=== PATIENT | male | born 1980 | race Caucasian/White ===

== ENCOUNTER 2017-09-23 21:55 | Emergency (ER) | payer OTHER, BC ==
[~2017-09-23] VITALS: Ht 185.4 cm; Wt 110.0 kg
[~2017-09-23 21:55] MED LIST: DARV PO; PRAZ2 PO
[2017-09-23 21:57] VITALS: BP 187/104; PULSE 92; RESP 25; TEMP 97.6; O2SAT 98
[2017-09-23] MEDS ORDERED: MORPHINE SULFATE 4 MG/ML INJ IV PUSH ONE ×2 (22:30→23:00)
[2017-09-23 22:31] LABS: AUTOMATED NEUTROPHIL # 7.3 TH/MM3 (1.8-7.7); BASOPHIL # 0.1 TH/MM3 (0-0.2); BASOPHIL % 1.1 % (0.0-2.0); EOSINOPHIL # 0.1 TH/MM3 (0-0.4); HEMATOCRIT 53.1 % (39.0-51.0); HEMOGLOBIN 17.9 GM/DL (13.0-17.0); LYMPH % 23.9 % (9.0-44.0); LYMPHOCYTE # 2.6 TH/MM3 (1.0-4.8); MEAN CELL VOLUME 86.2 FL (80.0-100.0); MEAN CORPUSCULAR HEMOGLOBIN 29.1 PG (27.0-34.0); MEAN CORPUSCULAR HGB CONC 33.7 % (32.0-36.0); MEAN PLATELET VOLUME 7.2 FL (7.0-11.0); MONO % 7.6 % (0.0-8.0); MONOCYTE # 0.8 TH/MM3 (0-0.9); NEUT % 66.4 % (16.0-70.0); PLATELET COUNT 418 TH/MM3 (150-450); RED BLOOD COUNT 6.16 MIL/MM3 (4.50-5.90); RED CELL DISTRIBUTION WIDTH 12.4 % (11.6-17.2); WHITE BLOOD COUNT 10.9 TH/MM3 (4.0-11.0)
[2017-09-23 22:35] LABS: CHLORIDE 105 MEQ/L (98-107); SODIUM (NA) 137 MEQ/L (136-145)
[2017-09-23 22:38] LABS: CALCIUM 9.3 MG/DL (8.5-10.1)
[2017-09-23 22:39] LABS: ALBUMIN 4.5 GM/DL (3.4-5.0); BICARBONATE 22.8 MEQ/L (21.0-32.0); BLOOD UREA NITROGEN 14 MG/DL (7-18); GLUCOSE,RANDOM 130 MG/DL (74-106)
[2017-09-23 22:42] LABS: ALT (GPT) 80 U/L (12-78); AST (GOT) 35 U/L (15-37); GLOMERULAR FILTRATION RATE 75 ML/MIN (>89)
[2017-09-23 22:44] LABS: TOTAL BILIRUBIN ADULT 0.4 MG/DL (0.2-1.0); TOTAL PROTEIN 8.3 GM/DL (6.4-8.2)
[2017-09-23 22:45] LABS: ALKALINE PHOSPHATASE 100 U/L (45-117)
[2017-09-23] MEDS ORDERED: KETOROLAC TROMETHAMINE 30 MG/ML (IVP) VIAL IV PUSH ONE (23:00)
[2017-09-23] MEDS ORDERED: SILVER SULFADIAZINE 1% CR 400 GM JAR TOPICAL ONE (23:15)
--- NOTE | 2017-09-23 23:29 | PD ---
HPI Chief Complaint: Burn Time Seen by Provider: 22:09 Travel History International Travel<30 days: No Contact w/Intl Traveler<30days: No Traveled to known affect area: No History of Present Illness HPI Patient is a 37-year-old male who comes in complaining of a burn to his left lower abdomen as well as his left upper thigh. He says he spilled some hot tea on himself this evening. Someone put zinc on it for him prior to coming in, he also said he tried jumping in the pool for relief. None of these things helped. He denies any medical problems. He denies any other injuries. He says the pain is severe. PFSH Past Medical History Depression: Yes Diminished Hearing: No Tetanus Vaccination: Unknown Past Surgical History Surgical History: No Previous Surgery Social History Alcohol Use: Yes (RARELY) Tobacco Use: No Substance Use: No Allergies-Medications (Allergen,Severity, Reaction): Coded Allergies: penicillin G (Unverified Allergy, Mild, 09/23/17) Reported Meds & Prescriptions Reported Meds & Active Scripts Active Review of Systems Except as stated in HPI: all other systems reviewed are Neg General / Constitutional: No: Fever, Chills HENT: No: Headaches, Lightheadedness Cardiovascular: No: Chest Pain or Discomfort Respiratory: No: Shortness of Breath Gastrointestinal: No: Nausea, Vomiting Musculoskeletal: No: Myalgias Skin: Positive Lesions Neurologic: No: Weakness, Dizziness Physical Exam Narrative GENERAL: Awake and alert, in no acute distress. SKIN: 2nd degree burn with blisters to the LLQ, covering about 1-2% of BSA. 2nd degree burn with blistering to the left upper thigh, only anteriorly, approximately 2-3% of his BSA. HEAD: Atraumatic. Normocephalic. EYES: Pupils equal and round. No scleral icterus. ENT: Mucous membranes pink and moist. CARDIOVASCULAR: Regular rate and rhythm. No murmur appreciated. RESPIRATORY: No accessory muscle use. Clear to auscultation. Breath sounds equal bilaterally. MUSCULOSKELETAL: No obvious deformities. No clubbing. No cyanosis. No edema. NEUROLOGICAL: Awake and alert. No obvious cranial nerve deficits. Motor grossly within normal limits. Normal speech. PSYCHIATRIC: Appropriate mood and affect; insight and judgment normal. Data Data Last Documented VS Vital Signs Date Time Temp Pulse Resp B/P (MAP) Pulse Ox O2 Delivery O2 Flow Rate FiO2 09/23/17 23:25 16 09/23/17 21:57 97.6 92 187/104 (131) 98 Orders Orders Iv Access Insert/Monitor (09/23/17 22:16) Complete Blood Count With Diff (09/23/17 22:16) Comprehensive Metabolic Panel (09/23/17 22:16) Morphine Inj (Morphine Inj) (09/23/17 22:30) Ketorolac Inj (Toradol Inj) (09/23/17 23:00) Morphine Inj (Morphine Inj) (09/23/17 23:00) Silver Sulfadi 1% Crm (400 Gm) (Silvaden (09/23/17 23:15) Labs Laboratory Tests Test 09/23/17 22:21 White Blood Count 10.9 TH/MM3 Red Blood Count 6.16 MIL/MM3 Hemoglobin 17.9 GM/DL Hematocrit 53.1 % Mean Corpuscular Volume 86.2 FL Mean Corpuscular Hemoglobin 29.1 PG Mean Corpuscular Hemoglobin Concent 33.7 % Red Cell Distribution Width 12.4 % Platelet Count 418 TH/MM3 Mean Platelet Volume 7.2 FL Neutrophils (%) (Auto) 66.4 % Lymphocytes (%) (Auto) 23.9 % Monocytes (%) (Auto) 7.6 % Eosinophils (%) (Auto) 1.0 % Basophils (%) (Auto) 1.1 % Neutrophils # (Auto) 7.3 TH/MM3 Lymphocytes # (Auto) 2.6 TH/MM3 Monocytes # (Auto) 0.8 TH/MM3 Eosinophils # (Auto) 0.1 TH/MM3 Basophils # (Auto) 0.1 TH/MM3 CBC Comment DIFF FINAL Differential Comment Blood Urea Nitrogen 14 MG/DL Creatinine 1.10 MG/DL Random Glucose 130 MG/DL Total Protein 8.3 GM/DL Albumin 4.5 GM/DL Calcium Level 9.3 MG/DL Alkaline Phosphatase 100 U/L Aspartate Amino Transf (AST/SGOT) 35 U/L Alanine Aminotransferase (ALT/SGPT) 80 U/L Total Bilirubin 0.4 MG/DL Sodium Level 137 MEQ/L Potassium Level 3.8 MEQ/L Chloride Level 105 MEQ/L Carbon Dioxide Level 22.8 MEQ/L Anion Gap 9 MEQ/L Estimat Glomerular Filtration Rate 75 ML/MIN [facility] Medical Decision Making Medical Screen Exam Complete: Yes Emergency Medical Condition: Yes Medical Record Reviewed: Yes Differential Diagnosis Burn versus cellulitis versus injury Narrative Course Patient is a 37 male comes in after he spilled hot tea on himself. Exam shows second-degree ortega to his left lower abdomen as well as his left upper thigh. There are no blisters or redness to his left testicle. Ortega were cleaned, dressed with Silvadene and bandaged. He was given pain medicine. He will be discharged with the remainder of the Silvadene and pain medicine. He is advised to change his bandages daily and reapply the Silvadene. Advised to return anytime for any signs of infection or any worsening symptoms. Asked to return in 2 days for a wound check. Diagnosis Primary Impression: 2nd deg burn abdomn wall Additional Impression: 2nd deg burn leg Patient Instructions: General Instructions, Second Degree Burn (ED) Additional Instructions: Drink plenty of fluids. Keep the area clean and dry, apply the Silvadene 3 times a day for the next few days. Return anytime for any worsening symptoms, especially for any signs of infection. Return in 2 days for a wound check. Scripts Oxycodone-Acetaminophen (Percocet) 5-325 mg Tab 1 TAB PO Q6H Y for PAIN, #14 TAB 0 Refills Prov: Shana Deleon MD 09/24/17 Disposition: 01 DISCHARGE HOME Condition: Stable Shana Deleon MD Sep 23, 2017 23:29
[2017-09-24] MEDS ORDERED: PERC5TAB12 PO (00:07)
[2017-09-24] MEDS ORDERED: oxyCODONE/ACETAMINOPHEN 5 MG/325 MG TAB PO ONE (00:15)
[2017-09-24 00:27] VITALS: BP 145/92; PULSE 79; RESP 16; TEMP 97.9; O2SAT 98
== END 2017-09-24 00:53 | disposition home or self-care (01) ==
LOC: PHED 21:55
DX: T21.22XA Burn of second degree of abdominal wall, initial encounter (principal); T24.212A Burn of second degree of left thigh, initial encounter; X10.0XXA Contact with hot drinks, initial encounter
CPT/HCPCS: 16020; 80053; 85025; 96374; 96376; 99284; J1885; J2270

== ENCOUNTER 2017-12-17 19:39 | Emergency (ER) | payer OTHER, BC ==
[~2017-12-17 19:39] MED LIST changes: -DARV PO; +PERC5TAB12 PO; -PRAZ2 PO
[2017-12-17 19:41] VITALS: BP 140/93; PULSE 66; RESP 16; O2SAT 98
[2017-12-17 20:32] VITALS: BP 166/96; PULSE 66; RESP 18; O2SAT 98
[2017-12-17] MEDS ORDERED: KETOROLAC TROMETHAMINE 30 MG/ML (IVP) VIAL IV PUSH ONE (20:45)
[2017-12-17] MEDS ORDERED: SODIUM CHLOR 0.9% 1000 ML INJ 1,000 ML IV ONE ×2 (20:45→21:45)
[2017-12-17 20:57] LABS: AUTOMATED NEUTROPHIL # 11.6 TH/MM3 (1.8-7.7); BASOPHIL # 0.1 TH/MM3 (0-0.2); BASOPHIL % 0.5 % (0.0-2.0); EOSINOPHIL # 0.1 TH/MM3 (0-0.4); EOSINOPHIL % 0.8 % (0.0-4.0); HEMATOCRIT 49.5 % (39.0-51.0); HEMOGLOBIN 17.3 GM/DL (13.0-17.0); LYMPH % 17.2 % (9.0-44.0); LYMPHOCYTE # 2.7 TH/MM3 (1.0-4.8); MEAN CELL VOLUME 85.2 FL (80.0-100.0); MEAN CORPUSCULAR HEMOGLOBIN 29.8 PG (27.0-34.0); MEAN PLATELET VOLUME 7.7 FL (7.0-11.0); MONOCYTE # 1.1 TH/MM3 (0-0.9); NEUT % 74.5 % (16.0-70.0); PLATELET COUNT 336 TH/MM3 (150-450); RED BLOOD COUNT 5.81 MIL/MM3 (4.50-5.90); RED CELL DISTRIBUTION WIDTH 12.9 % (11.6-17.2); WHITE BLOOD COUNT 15.6 TH/MM3 (4.0-11.0)
[2017-12-17 21:04] LABS: CHLORIDE 100 MEQ/L (98-107); SODIUM (NA) 134 MEQ/L (136-145)
[2017-12-17 21:07] LABS: CALCIUM 9.2 MG/DL (8.5-10.1)
[2017-12-17 21:08] LABS: ALBUMIN 4.2 GM/DL (3.4-5.0); BICARBONATE 24.9 MEQ/L (21.0-32.0); BLOOD UREA NITROGEN 17 MG/DL (7-18); GLUCOSE,RANDOM 106 MG/DL (74-106)
[2017-12-17 21:11] LABS: ALT (GPT) 72 U/L (12-78); AST (GOT) 33 U/L (15-37); GLOMERULAR FILTRATION RATE 75 ML/MIN (>89)
[2017-12-17 21:12] LABS: TOTAL BILIRUBIN ADULT 0.6 MG/DL (0.2-1.0)
[2017-12-17 21:14] LABS: ALKALINE PHOSPHATASE 87 U/L (45-117)
[2017-12-17] MEDS ORDERED: MORPHINE SULFATE 2 MG/ML SYRINGE IV PUSH ONE (21:15)
--- NOTE | 2017-12-17 21:17 | RADRPT ---
EXAM DATE/TIME: 12/17/2017 20:55 [facility] COMPARISON: No previous studies available for comparison. INDICATIONS : Right flank pain. ORAL CONTRAST: No oral contrast ingested. RADIATION DOSE: 19.15 CTDIvol (mGy) MEDICAL HISTORY : Renal calculi. SURGICAL HISTORY : None. ENCOUNTER: Initial ACUITY: 1 day PAIN SCALE: 10/10 LOCATION: Right flank TECHNIQUE: Volumetric scanning of the abdomen and pelvis was performed. Using automated exposure control and ad justment of the mA and/or kV according to patient size, radiation dose was kept as low as reasonably achievable to obtain optimal diagnostic quality images. DICOM format image data is available electro nically for review and comparison. FINDINGS: LOWER LUNGS: The visualized lower lungs are clear. LIVER: Homogeneous density without lesion. There is no dilation of the biliary tree. No calcified gallston es. SPLEEN: Normal size without lesion. PANCREAS: Within normal limits. KIDNEYS: Normal in size and shape. There is a 6 mm stone at the right UPJ. This generates mild to moderate hyd ronephrosis. No stones involving the left kidney or left ureter. ADRENAL GLANDS: Within normal limits. VASCULAR: There is no aortic aneurysm. BOWEL/MESENTERY: The stomach, small bowel, and colon demonstrate no acute abnormality. There is no free intraperitone al air or fluid. ABDOMINAL WALL: Within normal limits. RETROPERITONEUM: There is no lymphadenopathy. BLADDER: No wall thickening or mass. REPRODUCTIVE: Within normal limits. INGUINAL: There is no lymphadenopathy or hernia. MUSCULOSKELETAL: Within normal limits for patient age. CONCLUSION: 1. 6 mm right UPJ stone with mild to moderate hydronephrosis. No perinephric fluid collections. Clint Grewal Jr., MD on December 17, 2017 at 21:11 Board Certified Radiologist. This report was verified electronically.
[2017-12-17 21:30] VITALS: BP 145/83; PULSE 67; RESP 18; O2SAT 97
[2017-12-17] MEDS ORDERED: MORPHINE SULFATE 4 MG/ML INJ IV PUSH ONE (21:45)
[2017-12-17] MEDS ORDERED: MORPHINE SULFATE 8 MG/ML INJ IV PUSH ONE (21:45)
[2017-12-17] MEDS ORDERED: ONDANSETRON HCL 4 MG/2 ML VIAL IV PUSH ONE (21:45)
[2017-12-17 22:30] VITALS: BP 143/75; PULSE 62; RESP 18; O2SAT 96
--- NOTE | 2017-12-17 22:36 | PD ---
HPI . flank pain Chief Complaint: Flank/Kidney Pain Time Seen by Provider: 20:33 Travel History International Travel<30 days: No Contact w/Intl Traveler<30days: No Traveled to known affect area: No History of Present Illness HPI Patient is a 37-year-old male with sudden onset of right sided flank pain radiating around to his side. He says he did have blood in his urine which he was able to see and now is having difficulty urinating. He has a distant history of kidney stones which were not needing any intervention in the past on their own. He otherwise is a healthy male with no significant past medical history pain is localized deep inside on the lateral right aspect of his abdomen it is not reproducible with my percussion or palpation of his abdomen or his flank. It makes him nauseous when the pain gets severe he would rated 10 out of 10 when it is at its worst associated with nausea and feeling diaphoretic. There is no radiation to the groin and there is no flank pain it is mostly the lateral right aspect of his back he took 2 Tylenol prior to leaving his house which did not help the pain the pain is like pressure burning PFSH Past Medical History Depression: Yes Diminished Hearing: No Kidney Stones: Yes Influenza Vaccination: No Social History Alcohol Use: Yes (RARELY) Tobacco Use: No Substance Use: No Allergies-Medications (Allergen,Severity, Reaction): Coded Allergies: penicillin G (Verified Allergy, Mild, 12/17/17) Reported Meds & Prescriptions Reported Meds & Active Scripts Active Zofran (Ondansetron HCl) 4 Mg Tab 4 Mg PO Q6HR PRN Flomax (Tamsulosin HCl) 0.4 Mg Cap 0.4 Mg PO HS Ibuprofen 600 Mg Tab 600 Mg PO Q6H PRN Percocet (Oxycodone-Acetaminophen) 5-325 mg Tab 1 Tab PO Q6H PRN Review of Systems Except as stated in HPI: all other systems reviewed are Neg Gastrointestinal: Positive: Abdominal Pain Genitourinary: Positive: Flank Pain Physical Exam Narrative GENERAL: Patient is sitting on his bed leaning forward as if trying to find a comfortable position SKIN: Warm and dry. HEAD: Atraumatic. Normocephalic. EYES: Pupils equal and round. No scleral icterus. No injection or drainage. ENT: No nasal bleeding or discharge. Mucous membranes pink and moist. NECK: Trachea midline. No JVD. CARDIOVASCULAR: Regular rate and rhythm. RESPIRATORY: No accessory muscle use. Clear to auscultation. Breath sounds equal bilaterally. GASTROINTESTINAL: Abdomen soft, non-tender, nondistended. Hepatic and splenic margins not palpable. MUSCULOSKELETAL: Extremities without clubbing, cyanosis, or edema. No obvious deformities. Back exam-- percussion of the CVA does not elicit the pain however percussing his lateral lower rib area he says does stimulate the pain NEUROLOGICAL: Awake and alert. No obvious cranial nerve deficits. Motor grossly within normal limits. Five out of 5 muscle strength in the arms and legs. Normal speech. PSYCHIATRIC: Appropriate mood and affect; insight and judgment normal. Data Data Last Documented VS Vital Signs Date Time Temp Pulse Resp B/P (MAP) Pulse Ox O2 Delivery O2 Flow Rate FiO2 12/18/17 01:18 65 18 158/95 (116) 97 12/17/17 23:30 Room Air Orders Orders Complete Blood Count With Diff (12/17/17 20:39) Comprehensive Metabolic Panel (12/17/17 20:39) Lipase (12/17/17 20:39) Urinalysis - C+S If Indicated (12/17/17 20:39) Ct Abd/Pel W/O Iv Contrast (12/17/17 ) Ketorolac Inj (Toradol Inj) (12/17/17 20:45) Sodium Chlor 0.9% 1000 Ml Inj (Ns 1000 M (12/17/17 20:45) Morphine Inj (Morphine Inj) (12/17/17 21:45) Morphine Inj (Morphine Inj) (12/17/17 21:45) Sodium Chlor 0.9% 1000 Ml Inj (Ns 1000 M (12/17/17 21:45) Ondansetron Inj (Zofran Inj) (12/17/17 21:45) Ondansetron Odt (Zofran Odt) (12/17/17 22:45) Sodium Chlor 0.9% 1000 Ml Inj (Ns 1000 M (12/18/17 00:00) Oxycodone-Acetamin 5-325 Mg (Percocet (12/18/17 00:45) Ed Discharge Order (12/18/17 00:44) Labs Laboratory Tests Test 12/17/17 20:35 12/17/17 23:45 White Blood Count 15.6 TH/MM3 Red Blood Count 5.81 MIL/MM3 Hemoglobin 17.3 GM/DL Hematocrit 49.5 % Mean Corpuscular Volume 85.2 FL Mean Corpuscular Hemoglobin 29.8 PG Mean Corpuscular Hemoglobin Concent 35.0 % Red Cell Distribution Width 12.9 % Platelet Count 336 TH/MM3 Mean Platelet Volume 7.7 FL Neutrophils (%) (Auto) 74.5 % Lymphocytes (%) (Auto) 17.2 % Monocytes (%) (Auto) 7.0 % Eosinophils (%) (Auto) 0.8 % Basophils (%) (Auto) 0.5 % Neutrophils # (Auto) 11.6 TH/MM3 Lymphocytes # (Auto) 2.7 TH/MM3 Monocytes # (Auto) 1.1 TH/MM3 Eosinophils # (Auto) 0.1 TH/MM3 Basophils # (Auto) 0.1 TH/MM3 CBC Comment DIFF FINAL Differential Comment Blood Urea Nitrogen 17 MG/DL Creatinine 1.10 MG/DL Random Glucose 106 MG/DL Total Protein 8.0 GM/DL Albumin 4.2 GM/DL Calcium Level 9.2 MG/DL Alkaline Phosphatase 87 U/L Aspartate Amino Transf (AST/SGOT) 33 U/L Alanine Aminotransferase (ALT/SGPT) 72 U/L Total Bilirubin 0.6 MG/DL Sodium Level 134 MEQ/L Potassium Level 3.6 MEQ/L Chloride Level 100 MEQ/L Carbon Dioxide Level 24.9 MEQ/L Anion Gap 9 MEQ/L Estimat Glomerular Filtration Rate 75 ML/MIN Lipase 140 U/L Urine Color YELLOW Urine Turbidity SL CLOUDY Urine pH 6.0 Urine Specific [place] 1.015 Urine Protein NEG mg/dL Urine Glucose (UA) NEG mg/dL Urine Ketones 15 mg/dL Urine Occult Blood LARGE Urine Nitrite NEG Urine Bilirubin NEG Urine Urobilinogen 0.2 MG/DL Urine Leukocyte Esterase NEG Urine RBC 100-200 /hpf Urine WBC 0-2 /hpf Urine Squamous Epithelial Cells 0-5 /hpf Urine Bacteria FEW /hpf Urine Mucus FEW /lpf Microscopic Urinalysis Comment CULT NOT INDICATED MDM Medical Decision Making Medical Screen Exam Complete: Yes Emergency Medical Condition: Yes Differential Diagnosis Differential diagnosis includes costochondritis versus muscle strain versus flank pain versus renal colic versus obstructive renal stone ureter stone bladder stone. Muscle spasm appendicitis gallbladder disease other Narrative Course CT shows a mid ureter 6 mm stone with mild hydronephrosis and hydroureter proximal to the stone right-sided this correlates with the patient's pain he is given 2 L of fluid and Toradol 30 IV which helps reduce the pain from a 10 to a 3 and then for morphine and another liter fluid he will be discharged with Flomax and antibiotics and pain pills and a strainer to follow-up with an outpatient Dr Jaramillo urologist Diagnosis Primary Impression: Kidney stone Referrals: Ace Jaramillo DO Patient Instructions: General Instructions, Kidney Stones (DC) Additional Instructions: take Flomax before bedtime each night, Take ibuprofen 600mg PO every 6 hrs for pain and percocet for pain not controlled by ibuprofen . Urinate into the strainer until you see the stone. Call Dr Jaramillo for follow up urology Return to Er for any complications Scripts Ondansetron (Zofran) 4 Mg Tab 4 MG PO Q6HR Y for NAUSEA OR VOMITING, #10 TAB 0 Refills Prov: Fermin Escudero MD 12/18/17 Tamsulosin (Flomax) 0.4 Mg Cap 0.4 MG PO HS for Manage Prostate Problems, #10 CAP 0 Refills Prov: Fermin Escudero MD 12/18/17 Ibuprofen (Ibuprofen) 600 Mg Tab 600 MG PO Q6H Y for Pain/Inflammation, #40 TAB 0 Refills Prov: Fermin Escudero MD 12/18/17 Oxycodone-Acetaminophen (Percocet) 5-325 mg Tab 1 TAB PO Q6H Y for PAIN, #15 TAB 0 Refills Prov: Fermin Escudero MD 12/18/17 Disposition: 01 DISCHARGE HOME Condition: Good Fermin Escudero MD December 17, 2017 22:36
[2017-12-17] MEDS ORDERED: ONDANSETRON ODT 4 MG TAB PO ONE (22:45)
[2017-12-17 23:30] VITALS: BP 160/90; PULSE 66; RESP 16; O2SAT 97
[2017-12-17 23:51] LABS: BILIRUBIN, URINE NEG (NEG); BLOOD, URINE LARGE (NEG); GLUCOSE,URINE NEG (NEG); KETONE, URINE 15 mg/dL (NEG); NITRITE,URINE NEG (NEG); URINE COLOR YELLOW (YELLW/STRAW); URINE LEUKOCYTE ESTERASE NEG (NEG)
[2017-12-17 23:59] LABS: MUCUS URINE FEW /lpf (OCC); RBC, URINE 100-200 /hpf (0-3); SQUAMOUS EPITHELIAL CELL URINE 0-5 /hpf (0-5); WBC, URINE 0-2 /hpf (0-5)
[2017-12-18] LABS: BACTERIA, URINE FEW /hpf
[2017-12-18] MEDS ORDERED: SODIUM CHLOR 0.9% 1000 ML INJ 1,000 ML IV ONE
[2017-12-18] MEDS ORDERED: TAMS5CAP PO (00:41)
[2017-12-18] MEDS ORDERED: PERC5TAB12 PO (00:41)
[2017-12-18] MEDS ORDERED: IBUP-232 PO (00:41)
[2017-12-18] MEDS ORDERED: ZOFR4TAB PO (00:41)
[2017-12-18] MEDS ORDERED: oxyCODONE/ACETAMINOPHEN 5 MG/325 MG TAB PO ONE (00:45)
[2017-12-18 01:18] VITALS: BP 158/95
== END 2017-12-18 01:23 | disposition home or self-care (01) ==
LOC: PHED 19:39
DX: N13.2 Hydronephrosis with renal and ureteral calculous obstruction (principal); F32.9 Major depressive disorder, single episode, unspecified; Z87.442 Personal history of urinary calculi; Z88.0 Allergy status to penicillin
CPT/HCPCS: 74176; 80053; 81001; 83690; 85025; 96361; 96374; 96375; 99284; J1885; J2270; J2405; J7030